=== PATIENT | female | born 1995 | race Two or more races ===

== ENCOUNTER 2021-02-04 13:14 | Emergency (ER) | payer MEDICAID, OTHER ==
[2021-02-04 13:58] VITALS: BP 136/77
[2021-02-04] MEDS ORDERED: diphenhdrAMINE HCL 50 MG/1 ML VL IM ONE (15:45)
[2021-02-04] MEDS ORDERED: methylPREDNISolone SOD SUCC 125 MG/2 ML VL IM ONE (15:45)
== END 2021-02-04 16:42 | disposition home or self-care (01) ==
LOC: ER 13:14
DX: T78.40XA Allergy, unspecified, initial encounter (principal); J06.9 Acute upper respiratory infection, unspecified; B97.89 Other viral agents as the cause of diseases classified elsewhere; Y92.89 Other specified places as the place of occurrence of the external cause
CPT/HCPCS: 71046; 96372; 99284; J1200; J2930

== ENCOUNTER 2021-05-06 11:22 | Emergency (ER) | payer MEDICAID ==
[~2021-05-06] VITALS: Ht 152.4 cm; Wt 117.9 kg
[2021-05-06 14:09] VITALS: BP 112/83
== END 2021-05-06 14:27 | disposition home or self-care (01) ==
LOC: ER 11:22
DX: N64.52 Nipple discharge (principal)

== ENCOUNTER 2021-05-11 14:45 | Emergency (ER) | payer MEDICAID ==
[~2021-05-11] VITALS: Ht 152.4 cm; Wt 117.9 kg
[2021-05-11 15:35] VITALS: BP 130/91
== END 2021-05-11 16:26 | disposition home or self-care (01) ==
LOC: ER 14:45
DX: N64.4 Mastodynia (principal); F12.10 Cannabis abuse, uncomplicated

== ENCOUNTER 2021-07-28 07:13 | Emergency (ER) | payer MEDICAID ==
[~2021-07-28] VITALS: Ht 154.9 cm; Wt 117.9 kg
[2021-07-28 08:04] LABS: Urine Bacteria FEW /hpf (None Seen); Urine Blood Negative /uL (Negative); Urine Specific Gravity 1.016 (1.001-1.035); Urine WBC 6 /hpf (0 - 5)
[2021-07-28] MEDS ORDERED: ACET-1158 PO (09:44)
[2021-07-28] MEDS ORDERED: AMOX-277 PO (09:44)
[2021-07-28] MEDS ORDERED: ACETAMINOPHEN 325 MG TAB PO ONE (09:45)
[2021-07-28 10:05] VITALS: BP 134/80
== END 2021-07-28 10:09 | disposition home or self-care (01) ==
LOC: ER 07:13
DX: J06.9 Acute upper respiratory infection, unspecified (principal); N39.0 Urinary tract infection, site not specified; G44.209 Tension-type headache, unspecified, not intractable; F12.10 Cannabis abuse, uncomplicated; F17.200 Nicotine dependence, unspecified, uncomplicated; Z20.822 Contact with and (suspected) exposure to COVID-19
CPT/HCPCS: 36415; 81001; 81025

== ENCOUNTER 2021-09-24 11:21 | Emergency (ER) | payer MEDICAID ==
[~2021-09-24] VITALS: Ht 154.9 cm; Wt 117.9 kg
[~2021-09-24 11:21] MED LIST: ACET-1158 PO; AMOX-277 PO
[2021-09-24 13:12] LABS: Basophils # (auto) 0.2 10 ^3/uL (0-0.2); Eosinophils # (auto) 0 10 ^3/uL (0-0.8); Monocytes # (auto) 0.4 10 ^3/uL (0-1.3)
[2021-09-24 13:13] LABS: Basophils % (auto) 2.3 % (0.0-2.0); Eosinophils % (auto) 0.3 % (0.0-7.0); Hematocrit 41.9 % (36.0-46.0); Mean Corpuscular Hemoglobin 26.7 pg (28.0-32.0); Mean Corpuscular Hgb Conc. 33.4 g/dL (32.0-36.0); Mean Corpuscular Volume 79.9 fL (80.0-100.0); Monocytes % (auto) 4.2 % (0.0-12.0); Neutrophils # (auto) 7.2 10 ^3/uL (1.6-8.6); Neutrophils % (auto) 73.2 % (37.0-80.0); Red Blood Cells 5.24 10^6/uL (4.0-5.20); Red Cell Distribution Width 16.4 % (11.8-14.3); White Blood Cell 9.8 10^3/uL (4.4-10.8)
[2021-09-24] MEDS ORDERED: SODIUM CHLORIDE 0.9% 1,000 ML IV ONE (13:30)
[2021-09-24 13:42] LABS: Potassium 3.4 mmol/L (3.5-5.1)
[2021-09-24 13:48] LABS: Albumin 3.6 g/dL (3.4-5.0); BUN/Creatinine Ratio 11.1; Bilirubin, Total 0.6 mg/dL (0.2-1.0); Calcium 9.2 mg/dL (8.5-10.1); Total Protein 8.5 g/dL (6.4-8.2)
[2021-09-24 15:57] LABS: Urine Bacteria FEW /hpf (None Seen); Urine Blood Negative /uL (Negative); Urine Specific Gravity 1.019 (1.001-1.035); Urine WBC 3 /hpf (0 - 5)
[2021-09-24] MEDS ORDERED: ONDA-144 PO (16:16)
[2021-09-24 16:54] VITALS: BP 128/70
== END 2021-09-24 17:04 | disposition home or self-care (01) ==
LOC: ER 11:21
DX: R11.2 Nausea with vomiting, unspecified (principal); R19.7 Diarrhea, unspecified; F17.210 Nicotine dependence, cigarettes, uncomplicated; Z79.2 Long term (current) use of antibiotics; Z79.899 Other long term (current) drug therapy
CPT/HCPCS: 36415; 74176; 80053; 81001; 83690; 84702; 85025; 96360; 99284; J7030

== ENCOUNTER 2022-01-20 09:35 | Emergency (ER) | payer MEDICAID ==
[~2022-01-20] VITALS: Ht 152.4 cm; Wt 120.1 kg
[~2022-01-20 09:35] MED LIST changes: +ONDA-144 PO
[2022-01-20 10:25] LABS: Basophils # (auto) 0 10 ^3/uL (0-0.2); Basophils % (auto) 0.4 % (0.0-2.0); Eosinophils # (auto) 0.2 10 ^3/uL (0-0.8); Mean Corpuscular Hemoglobin 26.3 pg (28.0-32.0); Monocytes # (auto) 0.5 10 ^3/uL (0-1.3)
[2022-01-20 10:27] LABS: Eosinophils % (auto) 1.9 % (0.0-7.0); Hematocrit 40.7 % (36.0-46.0); Hemoglobin 13.3 g/dL (12.2-16.2); Lymphocytes # (auto) 2.3 10 ^3/uL (0.4-5.4); Lymphocytes % (auto) 25.8 % (10.0-50.0); Mean Corpuscular Hgb Conc. 32.7 g/dL (32.0-36.0); Mean Corpuscular Volume 80.4 fL (80.0-100.0); Monocytes % (auto) 5.3 % (0.0-12.0); Neutrophils # (auto) 5.9 10 ^3/uL (1.6-8.6); Neutrophils % (auto) 66.6 % (37.0-80.0); Red Blood Cells 5.05 10^6/uL (4.0-5.20); Red Cell Distribution Width 15.6 % (11.8-14.3); White Blood Cell 8.9 10^3/uL (4.4-10.8)
[2022-01-20 10:43] LABS: Albumin 3.5 g/dL (3.4-5.0); BUN/Creatinine Ratio 12.9; Calcium 8.3 mg/dL (8.5-10.1); Potassium 4.1 mmol/L (3.5-5.1)
[2022-01-20 10:46] LABS: Bilirubin, Total 0.7 mg/dL (0.2-1.0); Total Protein 7.1 g/dL (6.4-8.2)
[2022-01-20 12:38] LABS: Urine Bacteria FEW /hpf (None Seen); Urine Blood Negative /uL (Negative); Urine Specific Gravity 1.004 (1.001-1.035); Urine WBC <1 /hpf (0 - 5)
[2022-01-20] MEDS ORDERED: ONDA-144 PO (14:07)
[2022-01-20 14:59] VITALS: BP 118/94
== END 2022-01-20 15:02 | disposition home or self-care (01) ==
LOC: ER 09:35
DX: B34.9 Viral infection, unspecified (principal); R11.0 Nausea; F17.210 Nicotine dependence, cigarettes, uncomplicated; Z79.2 Long term (current) use of antibiotics; Z79.899 Other long term (current) drug therapy
CPT/HCPCS: 36415; 80053; 81001; 81025; 85025; 93005

== ENCOUNTER 2022-07-12 10:07 | Emergency (ER) | payer MEDICAID ==
[~2022-07-12] VITALS: Ht 152.4 cm; Wt 120.4 kg
[2022-07-12 10:20] VITALS: BP 132/99
[2022-07-12] MEDS ORDERED: HYDR50CA PO (12:47)
== END 2022-07-12 12:47 | disposition home or self-care (01) ==
LOC: ER 10:07
DX: F41.8 Other specified anxiety disorders (principal); Z79.2 Long term (current) use of antibiotics; Z79.899 Other long term (current) drug therapy
CPT/HCPCS: 93005

== ENCOUNTER 2022-11-21 00:58 | Emergency (ER) | payer MEDICAID ==
[~2022-11-21] VITALS: Ht 152.4 cm; Wt 120.6 kg
[~2022-11-21 00:58] MED LIST changes: -ACET-1158 PO; +ACET500T58 PO; -AMOX-277 PO; +AMOX875T4 PO; +HYDR50CA PO
[2022-11-21] MEDS ORDERED: AMOX500T3 PO (04:09)
[2022-11-21 04:43] VITALS: BP 116/70; PULSE 89; RESP 16; TEMP 98; O2SAT 96
== END 2022-11-21 04:11 | disposition home or self-care (01) ==
LOC: ER 01:00
DX: J03.90 Acute tonsillitis, unspecified (principal); F17.210 Nicotine dependence, cigarettes, uncomplicated; F12.90 Cannabis use, unspecified, uncomplicated; Z79.899 Other long term (current) drug therapy

== ENCOUNTER 2022-11-26 07:45 | Emergency (ER) | payer MEDICAID ==
[~2022-11-26] VITALS: Ht 152.4 cm; Wt 116.7 kg
[~2022-11-26 07:45] MED LIST changes: +AMOX500T3 PO
[2022-11-26 07:58] VITALS: BP 123/51; PULSE 71; RESP 18; TEMP 97.8; O2SAT 97
[2022-11-26] MEDS ORDERED: IBUP-1454 PO (09:16)
[2022-11-26] MEDS ORDERED: METH-1181 PO (09:16)
== END 2022-11-26 09:46 | disposition home or self-care (01) ==
LOC: ER 07:45
DX: M54.2 Cervicalgia (principal); F17.210 Nicotine dependence, cigarettes, uncomplicated; F15.90 Other stimulant use, unspecified, uncomplicated; Z79.1 Long term (current) use of non-steroidal anti-inflammatories (NSAID); Z79.899 Other long term (current) drug therapy
CPT/HCPCS: 72040; 81002; 81025

== ENCOUNTER 2023-01-24 22:06 | Emergency (ER) | payer MEDICAID ==
[~2023-01-24 22:06] MED LIST changes: +IBUP-1454 PO; +METH-1181 PO
[2023-01-24 23:44] LABS: Basophils # (auto) 0 10 ^3/uL (0-0.2); Basophils % (auto) 0.2 % (0.0-2.0); Eosinophils # (auto) 0.2 10 ^3/uL (0-0.8); Eosinophils % (auto) 1.5 % (0.0-7.0); Hematocrit 41.6 % (36.0-46.0); Hemoglobin 13.6 g/dL (12.2-16.2); Lymphocytes # (auto) 2.7 10 ^3/uL (0.4-5.4); Lymphocytes % (auto) 19.5 % (10.0-50.0); Mean Corpuscular Hemoglobin 27.6 pg (28.0-32.0); Mean Corpuscular Hgb Conc. 32.6 g/dL (32.0-36.0); Mean Corpuscular Volume 84.6 fL (80.0-100.0); Monocytes # (auto) 1.1 10 ^3/uL (0-1.3); Monocytes % (auto) 7.6 % (0.0-12.0); Neutrophils # (auto) 9.9 10 ^3/uL (1.6-8.6); Neutrophils % (auto) 71.2 % (37.0-80.0); Red Blood Cells 4.91 10^6/uL (4.0-5.20); Red Cell Distribution Width 15.1 % (11.8-14.3); White Blood Cell 13.9 10^3/uL (4.4-10.8)
[2023-01-25 00:09] LABS: Alanine Aminotransferase 15 U/L (7-40); Albumin 4.4 g/dL (3.2-4.8); Alkaline Phosphatase 85 U/L (46-116); Anion Gap 6 (5-15); Aspartate Aminotransferase 12 U/L (13-40); BUN/Creatinine Ratio 11.4 (10.0-20.0); Bilirubin, Total 0.8 mg/dL (0.2-1.0); Blood Urea Nitrogen 10 mg/dL (9-23); Calcium 9.4 mg/dL (8.7-10.4); Carbon Dioxide 31 mmol/L (20-30); Chloride 103 mmol/L (98-107); Glucose 62 mg/dL (74-106); Potassium 3.6 mmol/L (3.5-5.1); Sodium 140 mmol/L (136-145); Total Protein 7.1 g/dL (5.7-8.2)
[2023-01-25] MEDS ORDERED: KETOROLAC TROMETH 60MG/2ML VIAL IM ONE (01:15)
[2023-01-25 02:38] LABS: Vaginal Trichomonas Not Present
[2023-01-25 02:39] LABS: Vaginal Bacteria Few; Vaginal Clue Cells Few; Vaginal Epithelial Cells Many
[2023-01-25 04:15] LABS: Urine Bacteria NONE SEEN /hpf (None Seen); Urine Blood Negative /uL (Negative); Urine Clarity CLOUDY (Clear); Urine Color Yellow (Yellow); Urine Mucus FEW (None Seen); Urine Protein, UAD 1+ (Negative); Urine Specific Gravity 1.034 (1.001-1.035); Urine WBC 55 /hpf (0 - 5); Urine WBC Clumps PRESENT /hpf (None Seen)
[2023-01-25] MEDS ORDERED: IBUP-1456 PO (05:59)
== END 2023-01-25 05:54 | disposition home or self-care (01) ==
LOC: ER 22:06
DX: N83.202 Unspecified ovarian cyst, left side (principal); R10.2 Pelvic and perineal pain; F17.210 Nicotine dependence, cigarettes, uncomplicated; F12.10 Cannabis abuse, uncomplicated; Z32.02 Encounter for pregnancy test, result negative
CPT/HCPCS: 36415; 74176; 80053; 81001; 81025; 84702; 85025; 87210; 96372; 99285; J1885

== ENCOUNTER 2023-01-28 09:18 | Emergency (ER) | payer MEDICAID ==
[~2023-01-28] VITALS: Ht 152.4 cm; Wt 116.7 kg
[~2023-01-28 09:18] MED LIST changes: +IBUP-1456 PO
[2023-01-28 12:54] VITALS: BP 150/102; PULSE 87; RESP 16; TEMP 98.7; O2SAT 97
[2023-01-28 14:39] LABS: Albumin 4.6 g/dL (3.2-4.8); Alkaline Phosphatase 82 U/L (46-116); Anion Gap 5 (5-15); Aspartate Aminotransferase < 8 U/L (13-40); BUN/Creatinine Ratio 8.6 (10.0-20.0); Blood Urea Nitrogen 6 mg/dL (9-23); Calcium 9.4 mg/dL (8.7-10.4); Carbon Dioxide 27 mmol/L (20-30); Chloride 105 mmol/L (98-107); Glucose 86 mg/dL (74-106); Lipase 37 U/L (12-53); Potassium 3.8 mmol/L (3.5-5.1); Sodium 137 mmol/L (136-145)
[2023-01-28 14:40] LABS: Bilirubin, Total 1.2 mg/dL (0.2-1.0); Total Protein 7.9 g/dL (5.7-8.2)
[2023-01-28 14:46] LABS: Basophils # (auto) 0 10 ^3/uL (0-0.2); Basophils % (auto) 0.3 % (0.0-2.0); Eosinophils # (auto) 0.1 10 ^3/uL (0-0.8); Eosinophils % (auto) 0.6 % (0.0-7.0); Hematocrit 41.5 % (36.0-46.0); Hemoglobin 13.8 g/dL (12.2-16.2); Lymphocytes # (auto) 1.9 10 ^3/uL (0.4-5.4); Lymphocytes % (auto) 15.1 % (10.0-50.0); Mean Corpuscular Hgb Conc. 33.2 g/dL (32.0-36.0); Mean Corpuscular Volume 84.3 fL (80.0-100.0); Monocytes # (auto) 0.7 10 ^3/uL (0-1.3); Monocytes % (auto) 5.4 % (0.0-12.0); Neutrophils % (auto) 78.6 % (37.0-80.0); Nucleated Red Blood Cells % 0.1 %; Red Blood Cells 4.93 10^6/uL (4.0-5.20); Red Cell Distribution Width 15.1 % (11.8-14.3); White Blood Cell 12.7 10^3/uL (4.4-10.8)
[2023-01-28 14:52] LABS: Alanine Aminotransferase < 9 U/L (7-40)
[2023-01-28] MEDS ORDERED: ACET1CAP14 PO (16:08)
== END 2023-01-28 16:24 | disposition home or self-care (01) ==
LOC: ER 09:18
DX: N83.202 Unspecified ovarian cyst, left side (principal); N83.201 Unspecified ovarian cyst, right side; F17.210 Nicotine dependence, cigarettes, uncomplicated; F12.10 Cannabis abuse, uncomplicated
CPT/HCPCS: 36415; 76856; 80053; 83690; 84702; 85025

== ENCOUNTER 2023-05-26 11:25 | Emergency (ER) | payer MEDICAID ==
[~2023-05-26] VITALS: Ht 152.4 cm; Wt 115.0 kg
[~2023-05-26 11:25] MED LIST changes: +ACET1CAP14 PO
[2023-05-26 12:27] VITALS: BP 156/90; PULSE 88; RESP 18; TEMP 97.2; O2SAT 98
[2023-05-26] MEDS ORDERED: CYCL-837 PO (13:59)
[2023-05-26] MEDS ORDERED: MELO7.5T7 PO (13:59)
== END 2023-05-26 13:59 | disposition home or self-care (01) ==
LOC: ER 11:25
DX: M54.12 Radiculopathy, cervical region (principal); F17.210 Nicotine dependence, cigarettes, uncomplicated; F12.10 Cannabis abuse, uncomplicated
CPT/HCPCS: 81025

== ENCOUNTER 2023-08-31 11:16 | Emergency (ER) | payer MEDICAID ==
[~2023-08-31] VITALS: Ht 152.4 cm; Wt 118.0 kg
[~2023-08-31 11:16] MED LIST changes: +CYCL-837 PO; +MELO7.5T7 PO
[2023-08-31 12:25] VITALS: BP 123/78; PULSE 74; RESP 18; O2SAT 98
[2023-08-31 12:59] LABS: Urine Bacteria MOD /hpf (None Seen); Urine Blood Negative /uL (Negative); Urine Clarity Clear (Clear); Urine Color Light-Yellow (Yellow); Urine Protein, UAD Negative (Negative); Urine Specific Gravity 1.018 (1.001-1.035); Urine Urobilinogen Normal (Negative); Urine WBC 5 /hpf (0 - 5); Urine pH 7.5 (5.0-9.0)
== END 2023-08-31 13:22 | disposition home or self-care (01) ==
LOC: ER 11:16
DX: S40.021A Contusion of right upper arm, initial encounter (principal); X58.XXXA Exposure to other specified factors, initial encounter; Y93.89 Activity, other specified; Y92.89 Other specified places as the place of occurrence of the external cause; Y99.8 Other external cause status
CPT/HCPCS: 81001

== ENCOUNTER 2023-09-28 03:02 | Emergency (ER) | payer MEDICAID ==
[~2023-09-28] VITALS: Ht 152.4 cm; Wt 118.0 kg
[2023-09-28 07:57] VITALS: BP 129/96; PULSE 72; RESP 18; TEMP 98.6; O2SAT 98
== END 2023-09-28 07:29 | disposition left against medical advice (07) ==
LOC: ER 03:02
DX: R21 Rash and other nonspecific skin eruption (principal); Z53.21 Procedure and treatment not carried out due to patient leaving prior to being seen by health care provider

== ENCOUNTER 2023-10-30 05:21 | Emergency (ER) | payer MEDICAID ==
[~2023-10-30] VITALS: Ht 152.4 cm; Wt 123.0 kg
[2023-10-30 05:25] VITALS: BP 123/81; PULSE 69; RESP 16; TEMP 98.7
[2023-10-30] MEDS ORDERED: AZIT500T66 PO (06:44)
[2023-10-30] MEDS ORDERED: LIDO2SOL26 MT (06:44)
[2023-10-30 06:46] VITALS: O2SAT 98
== END 2023-10-30 07:13 | disposition home or self-care (01) ==
LOC: ER 05:21
DX: J03.90 Acute tonsillitis, unspecified (principal); F17.210 Nicotine dependence, cigarettes, uncomplicated; F12.10 Cannabis abuse, uncomplicated; Z79.899 Other long term (current) drug therapy

== ENCOUNTER 2024-01-03 08:41 | Emergency (ER) | payer MEDICAID ==
[~2024-01-03] VITALS: Ht 152.4 cm; Wt 114.2 kg
[~2024-01-03 08:41] MED LIST changes: +AZIT500T66 PO; +LIDO2SOL26 MT
[2024-01-03 09:20] VITALS: BP 125/77; PULSE 110; RESP 16; TEMP 98.7; O2SAT 99
[2024-01-03] MEDS: IBUPROFEN 800 MG TAB PO ONE (09:38)
[2024-01-03] MEDS ORDERED: IBUP-1455 PO (10:05)
== END 2024-01-03 10:49 | disposition home or self-care (01) ==
LOC: ER 08:41
DX: S93.402A Sprain of unspecified ligament of left ankle, initial encounter (principal); F17.210 Nicotine dependence, cigarettes, uncomplicated; F12.10 Cannabis abuse, uncomplicated; W01.0XXA Fall on same level from slipping, tripping and stumbling without subsequent striking against object, initial encounter; Y93.89 Activity, other specified; Y92.89 Other specified places as the place of occurrence of the external cause; Y99.8 Other external cause status
CPT/HCPCS: 29515; 73610

== ENCOUNTER 2024-03-18 11:20 | Emergency (ER) | payer MEDICAID ==
[~2024-03-18] VITALS: Ht 154.9 cm; Wt 115.6 kg
[~2024-03-18 11:20] MED LIST changes: +IBUP-1455 PO
[2024-03-18 11:21] VITALS: BP 119/87; PULSE 99; RESP 20; TEMP 97.7; O2SAT 97
[2024-03-18 11:54] LABS: Urine Bacteria None Seen /hpf (None Seen)
[2024-03-18 12:23] LABS: Urine Blood Negative /uL (Negative); Urine Clarity Turbid (Clear); Urine Color Light-Yellow (Yellow); Urine Mucus FEW (None Seen); Urine Protein, UAD TRACE (Negative); Urine Specific Gravity 1.021 (1.001-1.035); Urine Urobilinogen Normal (Negative); Urine WBC 4 /hpf (0 - 5)
[2024-03-18] MEDS ORDERED: ALBE200T9 PO (13:23)
--- NOTE | 2024-03-18 13:32 | ED.PDOC ---
History of Present Illness HPI Comments A 29 YEAR OLD FEMALE PRESENTS TO THE ED WITH COMPLAINT OF POSSIBLE TAPEWORM IN STOOL. PATIENT STATES SHE HAS BEEN EXPERIENCING MILD DIARRHEA FOR THE PAST 3 DAYS AND NOTES SHE NOTICED SOMETHING THAT LOOKED LIKE A WORM IN HER STOOL TODAY, PROMPTING HER TO COME TO THE ED FOR EVALUATION. PATIENT DENIES FEVER, CHILLS, SHORTNESS OF BREATH, CHEST PAIN, ABDOMINAL PAIN, NAUSEA, VOMITING, HEADACHE, OR OTHER COMPLAINTS. NO OTHER SYMPTOMS OR MODIFYING FACTORS AT THIS TIME. PATIENT IS ALERT, ORIENTED X 4, AND HAS STEADY GAIT. Chief Complaint: Abdominal Pain Time Seen by MD: 12:01 Primary Care Provider: ZACK Reviewed Notes: Nurses Notes, Medications, Allergies Allergies: Coded Allergies: NO KNOWN ALLERGIES (Unverified , 02/04/21) Home Meds Active Scripts Albendazole (Albendazole) 200 Mg Tab, 200 MG PO BID, #6 TAB Prov:EVELINA BUCHANAN 03/18/24 Ibuprofen Micronized (Ibuprofen) 800 Mg Tab, 800 MG PO Q8HPRN PRN, #20 TAB Prov:KERVIN GUERRA PAC 01/03/24 Lidocaine HCl (Mouth-Throat) (Lidocaine HCl Viscous) 2 % Ludy, 10 ML MT TID, #100 ML Prov:EVELINA BUCHANAN 10/30/23 Azithromycin (Azithromycin) 500 Mg Tab, 1 TAB PO DAILY, #5 TAB Prov:EVELINA BUCHANAN 10/30/23 Cyclobenzaprine Hcl (Cyclobenzaprine Hcl) 5 Mg Tab, 1 TAB PO QPM for 30 Days, #30 TAB 0 Refills Prov:MANDO MARIN ENGINEER INTERNSHIP 05/26/23 Meloxicam (Meloxicam) 7.5 Mg Tab, 1 TAB PO DAILY for 14 Days, #14 TAB 0 Refills Prov:MANDO MARIN ENG[employer] 05/26/23 Acetaminophen (Tylenol) 325 Mg Cap, 325 MG PO Q4HPRN PRN, #30 CAP 0 Refills Take 1-2 caps po q4h prn for pain (Do not exceed 3,000mg of acetaminophen in 24 hours) Prov:INNA KAPOOR EBAY RESELLER 01/28/23 Ibuprofen (Ibuprofen) 800 Mg Tab, 1 TAB PO TID PRN for 30 Days, #90 TAB 1 Refill Prov:JESSICA ELAINE EBAY RESELLER 01/25/23 Ibuprofen (Ibuprofen) 600 Mg Tab, 1 TAB PO TID for 10 Days, #30 TAB 0 Refills Prov:TANIAREBECCA ZAPATAJeannette Hays ENGINEER INTERNSHIP 11/26/22 Methocarbamol (Methocarbamol) 500 Mg Tab, 500 MG PO TIDP PRN for 14 Days, #42 TAB 0 Refills Prov:MANDO MARIN Saúl [employer] 11/26/22 Amoxicillin Trihydrate (Amoxicillin) 500 Mg Tab, 1 TAB PO BID for 10 Days, #20 TAB 0 Refills Prov:JASIEL LITTLE 11/21/22 Hydroxyzine Pamoate (Vistaril) 50 Mg Cap, 1 CAP PO QHSP PRN, #24 CAP 0 Refills Prov:EVELINA BUCHANAN 07/12/22 Ondansetron (Zofran) 4 Mg Tab, 1 TAB PO Q8HR PRN, #15 TAB 0 Refills Prov:JASIEL LITTLE 03/19/22 Ondansetron (Zofran) 4 Mg Tab, 1 TAB PO Q6HR, #20 TAB Prov:OSMIN LU MD 01/20/22 Ondansetron (Zofran) 4 Mg Tab, 4 MG PO Q8HP PRN for 12 Days, #30 TAB Prov:GURWINDER PRUITT MD 09/24/21 Acetaminophen (Acetaminophen) 500 Mg Tab, 500 MG PO QIDP, #30 TAB 0 Refills Prov:DENNIS SHAHID 07/28/21 Amoxicillin & Pot Clavulanate (Amoxicillin/Potassium Cla) 875 Mg Tab, 1 TAB PO BID for 7 Days, #14 TAB 0 Refills Prov:DENNIS SHAHID 07/28/21 Information Source: Patient Mode of Arrival: Ambulatory Severity: Mild Timing: Hours Duration: Hours Prehospital treatment: None Medication Refill: For: Other (POSSIBLE TAPEWORM IN STOOL) Past Medical History PAST MEDICAL HISTORY: Denies Surgical History: Denies all surgeries COMBER FIXER History: No Pertinent COMBER FIXER History Family History Family History: Reviewed,noncontributory to illness, Family hx of heart koby Family History (Other): Migraines Social History Smoker: Cigarettes Alcohol: Denies ETOH Use Drugs: Marijuana Lives In: Home Constitutional: denies: chills, diaphoresis, fatigue, fever, malaise, sweats, weakness, others EENTM: denies: blurred vision, double vision, ear bleeding, ear discharge, ear drainage, ear pain, ear ringing, eye pain, eye redness, hearing loss, mouth pain, mouth swelling, nasal discharge, nose bleeding, nose congestion, nose pain, photophobia, tearing, throat pain, throat swelling, voice changes, others Respiratory: denies: cough, hemoptysis, orthopnea, SOB at rest, shortness of breath, SOB with excertion, stridor, wheezing, others Cardiovascular: denies: chest pain, dizzy spells, diaphoresis, Dyspnea on exertion, edema, irregular heart beat, left arm pain, lightheadedness, palp itations, PND, syncope, others Gastrointestinal: reports: diarrhea, others (POSSIBLE TAPEWORM IN STOOL); denies: abdomen distended, abdominal pain, blood streaked bowels, constipated, dysphagia, difficulty swallowing, hematemesis, melena, nausea, poor appetite, poor fluid intake, rectal bleeding, rectal pain, vomiting Genitourinary: denies: abnormal vagina bleeding, burning, dyspareunia, dysuria, flank pain, frequency, hematuria, incontinence, pain, , vagina discharge, urgency, others Neurological: denies: dizziness, fainting, headache, left sided numbness, left sided weakness, numbness, paresthesia, pre-existing deficit, right sided numbness, right sided weakness, seizure, speech problems, tingling, tremors, weakness, others Musculoskeletal: denies: back pain, gout, joint pain, joint swelling, muscle pain, muscle stiffness, neck pain, others Integumetry: denies: bruises, change in color, change in hair/nails, dryness, laceration, lesions, lumps, rash, wounds, others Allergic/Immunocompromised: denies: Difficulty Healing, Frequent Infections, Hives, Itching, others Hematologic/Lymphatic: denies: anemia, blood clots, easy bleeding, easy bruising, swollen glands, others Endocrine: denies: excessive hunger, excessive sweating, excessive thirst, excessive urination, flushing, intolerance to cold, intolerance to heat, unexplained weight gain, unexplained weight loss, others Psychiatric: denies: anxiety, bipolar disorder, depression, hopeless, panic disorder, schizophrenia, sleepless, suicidal, others All Other Systems: Reviewed and Negative Physical Exam General Appearance: No Apparent Distress, Normal HEENT: Normal ENT Inspection, PERRL/EOMI, Pharynx Normal, TMs Normal Neck: Full Range of Motion, Non-Tender, Normal, Normal Inspection Respiratory: Chest Non-Tender, Lungs Clear, No Accessory Muscle Use, No Respiratory Distress, Normal Breath Sounds Cardiovascular: No Edema, No JVD, No Murmur, No Gallop, Normal Peripheral Pulses, Regular Rate/Rhythm Breast Exam: Deferred Gastrointestinal: No Organomegaly, Non Tender, No Pulsatile Mass, Normal Bowel Sounds, Soft Genitalia: Deferred Pelvic: Deferred Rectal: Normal rectal tone (NO DEFINITE TAPEWORM OR PINWORM SEEN. NO RECTAL BLEEDING AND BLOOD CLOTS. ) Extremities: No calf tenderness, Normal capillary refill, Normal inspection, Normal range of motion, Non-tender, No pedal edema Musculoskeletal : Apperance: Normal Neurologic: Alert, career development facilitator II-XII nml as Tested, No Motor Deficits, Normal Affect, Normal Mood, No Sensory Deficits Cerebellar Function: Normal Reflexes: Normal Skin: Dry, Normal Color, Warm Peripheral Pulses: 2+ carotid (R), 2+ carotid (L) Lymphatic: No Adenopathy Was a procedure done? Was a procedure done?: No Differential Dx Considerations may include: TAPEWORM, PARASITE, DIARRHEA, VIRAL SYNDROME, UTI, ACUTE CYSTITIS X-Ray, Labs, Meds, VS Vital Signs Date Time Temp Pulse Resp B/P (MAP) Pulse Ox O2 Delivery O2 Flow Rate FiO2 03/18/24 11:21 97.7 99 20 119/87 (98) 97 97.7 03/18/24 11:21 97.7 99 20 119/87 (98) 97 Lab Test 03/18/24 11:48 Range/Units Urine Color Light-yellow Yellow Urine Clarity Turbid H Clear Urine pH 7.0 5.0-9.0 Urine Specific [place] 1.021 1.001-1.035 Urine Protein Trace H Negative Urine Ketones Negative Negative Urine Blood Negative Negative /uL Urine Nitrite Negative Negative Urine Bilirubin Negative Negative Urine Urobilinogen Normal Negative mg/dL Urine Leukocyte Esterase 1+ Negative /uL Urine RBC 3 0 - 4 /hpf Urine WBC 4 0 - 5 /hpf Urine Squamous Epithelial Cells Few <5 /hpf Urine Bacteria None seen None Seen /hpf Urine Mucus Few None Seen Urine Glucose Normal Normal mg/dL Urine Test Negative Negative X-Ray, Labs, Meds, VS Comment EXTERNAL NOTES: NONE LABS ORDERED: UA, URINE REVIEWED AND INTERPRETED RESULTS: LEUKO 1+ IMAGING ORDERED: NONE INDEPENDENT HISTORIANS: NONE TREATMENTS ORDERED: PATIENT'S CASE AND RESULTS HAVE BEEN DISCUSSED WITH THE ED ATTENDING PHYSICIAN AND THEY AGREE WITH MY PLAN OF CARE. I HAVE DISCUSSED LAB RESULTS WITH PATIENT AND HAVE INSTRUCTED THEM TO FOLLOW UP WITH THEIR PCP IN 1-2 DAYS. THE PATIENT FULLY UNDERSTANDS THEIR RESULTS AND ARE AWARE THEY NEED TO FOLLOW UP WITH THEIR PCP FOR FURTHER EVALUATION IF THEIR SYMPTOMS PERSIST. Time of 1ST Reevaluation: 13:40 Reevaluation 1ST: Improved Patient Education/Counseling: Diagnosis, Treatment, Need For Follow Up Family Education/Counseling: Diagnosis, Treatment, Need For Follow Up Medical Screening: No EMC Exist At This Time Departure 1 Departure Time of Disposition: 13:50 Impression: Primary Impression: Tapeworm Disposition: 01 HOME / SELF CARE / HOMELESS Condition: Stable Additional Instructions: FOLLOW-UP WITH PCP IN 1 TO 2 DAYS. TAKE MEDICATIONS PRESCRIBED. RETURN TO ED FOR ANY NEW OR WORSENING SYMPTOMS. e-Prescriptions Albendazole (Albendazole) 200 Mg Tab 200 MG PO BID, #6 TAB Prov: EVELINA BUCHANAN 03/18/24 Discharged With: Self Critical Care Note Critical Care Time?: No Stability Stability form required: No I personally scribed for EVELINA BUCHANAN ([email or web address]) on 03/18/24 at 13:32. Electronically submitted by Lc Christianson ([email or web address]). EVELINA BUCHANAN Mar 18, 2024 13:32
== END 2024-03-18 13:42 | disposition home or self-care (01) ==
LOC: ER 11:20
DX: B71.9 Cestode infection, unspecified (principal); F17.210 Nicotine dependence, cigarettes, uncomplicated; F12.90 Cannabis use, unspecified, uncomplicated; Z79.899 Other long term (current) drug therapy
CPT/HCPCS: 81001; 81025

== ENCOUNTER 2024-08-16 11:30 | Emergency (ER) | payer MEDICAID ==
[~2024-08-16] VITALS: Ht 152.4 cm; Wt 119.4 kg
[~2024-08-16 11:30] MED LIST changes: +ALBE200T9 PO; +ALBU108A5 IN; +PRED20TA2 PO; +PROM1SOL4 PO
[2024-08-16] MEDS: SODIUM CHLORIDE 0.9% 1,000 ML IV ONE (13:12)
[2024-08-16] MEDS: ONDANSETRON HCL 4 MG/2 ML VIAL IV ONE (13:13)
[2024-08-16] MEDS: PANTOPRAZOLE 40 MG/10 ML VIAL INJ IV ONE (13:13)
[2024-08-16 13:17] LABS: Urine Bacteria None Seen /hpf (None Seen)
[2024-08-16 13:24] LABS: Urine Blood Negative /uL (Negative); Urine Clarity Clear (Clear); Urine Color Light-Yellow (Yellow); Urine Protein, UAD Negative (Negative); Urine Specific Gravity 1.012 (1.001-1.035); Urine Squamous Epithelial Cell FEW /hpf (<5); Urine Urobilinogen Normal (Negative); Urine WBC 1 /HPF (0-5)
[2024-08-16 13:30] LABS: Basophils # (auto) 0 10 ^3/uL (0-0.2); Basophils % (auto) 0.3 % (0.0-2.0); Eosinophils # (auto) 0.1 10 ^3/uL (0-0.8); Eosinophils % (auto) 1.4 % (0.0-7.0); Hematocrit 41.7 % (36.0-46.0); Lymphocytes # (auto) 2.2 10 ^3/uL (0.4-5.4); Mean Corpuscular Hemoglobin 27.8 pg (28.0-32.0); Mean Corpuscular Hgb Conc. 33.6 g/dL (32.0-36.0); Mean Corpuscular Volume 82.8 fL (80.0-100.0); Monocytes # (auto) 0.5 10 ^3/uL (0-1.3); Neutrophils # (auto) 7.5 10 ^3/uL (1.6-8.6); Neutrophils % (auto) 72.3 % (37.0-80.0); Platelet Count (auto) 323 10^3/uL (140-450); Red Blood Cells 5.04 10^6/uL (4.0-5.20); Red Cell Distribution Width 14.6 % (11.8-14.3); White Blood Cell 10.3 10^3/uL (4.4-10.8)
[2024-08-16 13:42] LABS: Alanine Aminotransferase 13 U/L (7-40); Albumin 4.7 g/dL (3.2-4.8); Alkaline Phosphatase 83 U/L (46-116); Anion Gap 6 (5-15); Calcium 9.1 mg/dL (8.7-10.4); Carbon Dioxide 28 mmol/L (20-31); Chloride 106 mmol/L (98-107); Glucose 91 mg/dL (74-106); Lipase 32 U/L (12-53); Potassium 3.8 mmol/L (3.5-5.1); Sodium 140 mmol/L (136-145)
[2024-08-16 13:43] LABS: BUN/Creatinine Ratio 11.8 (10.0-20.0); Blood Urea Nitrogen 9 mg/dL (9-23); Total Protein 7.9 g/dL (5.7-8.2)
[2024-08-16 13:45] LABS: Aspartate Aminotransferase 9 U/L (13-40)
--- NOTE | 2024-08-16 13:58 | ED.PDOC ---
History of Present Illness HPI Comments 29 y/o morbidly obese F with a history of asthma, ovarian cysts and marijuana use, c/o abdominal discomfort with associated chest heaviness, nausea, vomiting, diarrhea, weakness, fatigue, occasional dysuria, and anxiety for 2 days. Patient states she took a home preg test which was negative. Sexually active but not on control. Reports LMP on 05/16/24. Denies any blood in her urine or vomitus, fever, chills, congestion, shortness of breath, sick contacts or other associated symptoms. Chief Complaint: Pelvic Pain Time Seen by MD: 12:50 Primary Care Provider: ZACK Reviewed Notes: Nurses Notes, Medications, Allergies Allergies: Coded Allergies: NO KNOWN ALLERGIES (Unverified , 02/04/21) Home Meds Active Scripts Omeprazole Magnesium (Omeprazole) 20 Mg Tab, 20 MG PO DAILY, #30 TAB Prov:GHADA SPEAR MD 08/16/24 Dicyclomine Hcl (BENTYL CAPSULE) 10 Mg Cp, 2 CAP PO Q6HP PRN, #30 CAP 11 Refills Prn abdominal pain Prov:GHADA SPEAR MD 08/16/24 Ondansetron Odt 4MG Tab (ZOFRAN PO) 4 Mg Tb, 4 MG PO TID PRN, #30 TAB Prn nausea/vomiting ODT TAB-DISSOLVE IN MOUTH, THEN SWALLOW Prov:GHADA SPEAR MD 08/16/24 Promethazine-Dm (Promethazine Dm 6.25-15 mg/5Ml) 1 Ludy Ludy, 5 ML PO TID PRN, #240 ML Prov:BON PACHECO 03/28/24 Albuterol Sulfate (Albuterol Sulfate Hfa) 108 Mcg/Act Aer, 108 MCG IN TID PRN, #1 AER Prov:BON PACHECO 03/28/24 Prednisone (Prednisone) 20 Mg Tab, 20 MG PO DAILY for 5 Days, #5 MG Prov:BON PACHECO 03/28/24 Albendazole (Albendazole) 200 Mg Tab, 200 MG PO BID, #6 TAB Prov:EVELINA BUCHANAN 03/18/24 Ibuprofen Micronized (Ibuprofen) 800 Mg Tab, 800 MG PO Q8HPRN PRN, #20 TAB Prov:GUERRAKERVIN LIANA PAC 01/03/24 Lidocaine HCl (Mouth-Throat) (Lidocaine HCl Viscous) 2 % Ludy, 10 ML MT TID, #100 ML Prov:EVELINA BUCHANAN PA 10/30/23 Azithromycin (Azithromycin) 500 Mg Tab, 1 TAB PO DAILY, #5 TAB Prov:EVELINA BUCHANAN 10/30/23 Cyclobenzaprine Hcl (Cyclobenzaprine Hcl) 5 Mg Tab, 1 TAB PO QPM for 30 Days, #30 TAB 0 Refills Prov:MANDO MARIN WAITER/WAITRESS ROOM SERVICE 05/26/23 Meloxicam (Meloxicam) 7.5 Mg Tab, 1 TAB PO DAILY for 14 Days, #14 TAB 0 Refills Prov:MANDO MARIN WAITER/WAITRESS ROOM SERVICE 05/26/23 Acetaminophen (Tylenol) 325 Mg Cap, 325 MG PO Q4HPRN PRN, #30 CAP 0 Refills Take 1-2 caps po q4h prn for pain (Do not exceed 3,000mg of acetaminophen in 24 hours) Prov:INNA KAPOOR RN MATERNAL CHILD 01/28/23 Ibuprofen (Ibuprofen) 800 Mg Tab, 1 TAB PO TID PRN for 30 Days, #90 TAB 1 Refill Prov:JESSICA ELAINE RN MATERNAL CHILD 01/25/23 Ibuprofen (Ibuprofen) 600 Mg Tab, 1 TAB PO TID for 10 Days, #30 TAB 0 Refills Prov:MANDO MARIN WAITER/WAITRESS ROOM SERVICE 11/26/22 Methocarbamol (Methocarbamol) 500 Mg Tab, 500 MG PO TIDP PRN for 14 Days, #42 TAB 0 Refills Prov:MANDO MARIN WAITER/WAITRESS ROOM SERVICE 11/26/22 Amoxicillin Trihydrate (Amoxicillin) 500 Mg Tab, 1 TAB PO BID for 10 Days, #20 TAB 0 Refills Prov:JASIEL LITTLE 11/21/22 Hydroxyzine Pamoate (Vistaril) 50 Mg Cap, 1 CAP PO QHSP PRN, #24 CAP 0 Refills Prov:EVELINA BUCHANAN 07/12/22 Ondansetron (Zofran) 4 Mg Tab, 1 TAB PO Q8HR PRN, #15 TAB 0 Refills Prov:JASIEL LITTLE 03/19/22 Ondansetron (Zofran) 4 Mg Tab, 1 TAB PO Q6HR, #20 TAB Prov:OSMIN LU MD 01/20/22 Ondansetron (Zofran) 4 Mg Tab, 4 MG PO Q8HP PRN for 12 Days, #30 TAB Prov:GURWINDER PRUITT MD 09/24/21 Acetaminophen (Acetaminophen) 500 Mg Tab, 500 MG PO QIDP, #30 TAB 0 Refills Prov:DENNIS SHAHID 07/28/21 Amoxicillin & Pot Clavulanate (Amoxicillin/Potassium Cla) 875 Mg Tab, 1 TAB PO BID for 7 Days, #14 TAB 0 Refills Prov:DENNIS SHAHID 07/28/21 Information Source: Patient Mode of Arrival: Ambulatory Severity: Moderate Timing: Days Duration: Since onset Past Medical History PAST MEDICAL HISTORY: Asthma Surgical History: Denies all surgeries 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 Family History Family History: Reviewed,noncontributory to illness, Family hx of heart koby Family History (Other): Migraines Social History Smoker: Cigarettes Alcohol: Denies ETOH Use Drugs: Marijuana Lives In: Home All Other Systems: Reviewed and Negative (Comprehensive systems review obtained and negative except for what is stated in the HPI.) Physical Exam General Appearance: Mild Distress, Obese HEENT: Other (pupils and face symmetric, moist mucous membranes) Neck: Full Range of Motion, Normal Inspection Respiratory: Lungs Clear, No Accessory Muscle Use, No Respiratory Distress, Normal Breath Sounds Cardiovascular: No Edema, No JVD, Regular Rate/Rhythm Breast Exam: Deferred Gastrointestinal: LLQ, RLQ, Soft, Suprapubic, Tenderness Genitalia: Deferred Pelvic: Deferred Rectal: Deferred Extremities: Normal inspection, Normal range of motion, Non-tender, No pedal edema Neurologic: Alert (oriented x 4), Normal Affect, Other (ambulatory. anxious.) Cerebellar Function: NOT DONE Reflexes: NOT DONE Skin: Dry, Normal Color, Warm Lymphatic: NOT DONE Was a procedure done? Was a procedure done?: No Differential Dx Considerations may include: viral syndrome, UTI, , food poisoning, gastritis, gastroenteritis, cannabinoid hyperemesis syndrome, hypovolemia/dehydration, electrolyte imbalance, among others X-Ray, Labs, Meds, VS Vital Signs Date Time Temp Pulse Resp B/P (MAP) Pulse Ox O2 Delivery O2 Flow Rate FiO2 08/16/24 13:14 97.9 80 12 127/67 (87) 98 97.9 08/16/24 13:13 Room Air* 0 N/A Nasal Cannula* 08/16/24 11:45 98.5 85 18 133/79 (97) 95 98.5 Lab Test 08/16/24 12:59 08/16/24 12:57 08/16/24 12:50 Range/Units White Blood Count 10.3 4.4-10.8 10^3/uL Red Blood Count 5.04 4.0-5.20 10^6/uL Hemoglobin 14.0 12.2-16.2 g/dL Hematocrit 41.7 36.0-46.0 % Mean Corpuscular Volume 82.8 80.0-100.0 fL Mean Corpuscular Hemoglobin 27.8 L 28.0-32.0 pg Mean Corpuscular Hemoglobin Concent 33.6 32.0-36.0 g/dL Red Cell Distribution Width 14.6 H 11.8-14.3 % Platelet Count 323 140-450 10^3/uL Mean Platelet Volume 7.3 6.9-10.8 fL Neutrophils (%) (Auto) 72.3 37.0-80.0 % Lymphocytes (%) (Auto) 21.0 10.0-50.0 % Monocytes (%) (Auto) 5.0 0.0-12.0 % Eosinophils (%) (Auto) 1.4 0.0-7.0 % Basophils (%) (Auto) 0.3 0.0-2.0 % Neutrophils # (Auto) 7.5 1.6-8.6 10 ^3/uL Lymphocytes # (Auto) 2.2 0.4-5.4 10 ^3/uL Monocytes # (Auto) 0.5 0-1.3 10 ^3/uL Eosinophils # (Auto) 0.1 0-0.8 10 ^3/uL Basophils # (Auto) 0 0-0.2 10 ^3/uL Nucleated Red Blood Cells 0.0 % Sodium Level 140 136-145 mmol/L Potassium Level 3.8 3.5-5.1 mmol/L Chloride Level 106 98-107 mmol/L Carbon Dioxide Level 28 20-31 mmol/L Anion Gap 6 5-15 Blood Urea Nitrogen 9 9-23 mg/dL Creatinine 0.76 0.550-1.02 mg/dL Glomerular Filtration Rate Calc 110 >90 mL/min BUN/Creatinine Ratio 11.8 10.0-20.0 Serum Glucose 91 74-106 mg/dL Calcium Level 9.1 8.7-10.4 mg/dL Total Bilirubin 1.0 0.2-1.0 mg/dL Aspartate Amino Transferase (AST) 9 L 13-40 U/L Alanine Aminotransferase (ALT) 13 7-40 U/L Alkaline Phosphatase 83 46-116 U/L Total Protein 7.9 5.7-8.2 g/dL Albumin 4.7 3.2-4.8 g/dL Lipase 32 12-53 U/L Beta HCG, Quantitative 1.2 L 1.5-4.2 mIU/mL Urine Color Light-yellow Yellow Urine Clarity Clear Clear Urine pH 7.0 5.0-9.0 Urine Specific [place] 1.012 1.001-1.035 Urine Protein Negative Negative Urine Ketones Negative Negative Urine Blood Negative Negative /uL Urine Nitrite Negative Negative Urine Bilirubin Negative Negative Urine Urobilinogen Normal Negative mg/dL Urine Leukocyte Esterase Negative Negative /uL Urine RBC 1 0 - 4 /hpf Urine Microscopic WBC 1 0-5 /HPF Urine Squamous Epithelial Cells Few <5 /hpf Urine Bacteria None seen None Seen /hpf Urine Glucose Normal Normal mg/dL Current Medications Medications (Trade) Dose Ordered Sig/Chaya Route Start Time Stop Time Status Last Admin Sodium Chloride 1,000 ml @ 1,000 mls/hr Q1H ONCE IV 08/16/24 13:00 08/16/24 13:59 DC 08/16/24 13:12 Ondansetron HCl (Zofran) 4 mg ONCE ONCE IV 08/16/24 13:00 08/16/24 13:01 DC 08/16/24 13:13 Pantoprazole Sodium (Protonix) 40 mg ONCE ONCE IV 08/16/24 13:00 08/16/24 13:01 DC 08/16/24 13:13 PROCEDURE(s): ABPL - CT AB PEL WO CON-NO ORAL OR IV REASON: abd pain, n/v/d ORDER NUMBER(s): [id number], ACCESSION NUMBER(s): [id number] CT ABDOMEN AND PELVIS WITHOUT CONTRAST CLINICAL HISTORY: abd pain, n/v/d TECHNIQUE: Multiple contiguous axial images of the abdomen and pelvis without intravenous contrast. The images were reformatted degenerate coronal and sagittal reconstructions. All CT scans at this medical facility are performed using dose modulation techniques as appropriate to a performed exam including the following:Automated exposure control was utilized; adjustment of the MA and/or KV according to patient size; and use of iterative reconstruction technique. Radiation Dose Information: CT Dose: CTDI volume is 27.4 mGy. Dose-length produ ct is 1588.94 mGy*cm Comparison: CT CT AB PEL WO CON-NO ORAL OR IV on DOS: 01/25/23, CT ABD PELVIS WO CONTRAST on DOS: 09/24/21 FINDINGS: Evaluation of the abdomen and pelvis is limited without intravenous contrast. The liver, gallbladder, pancreas, kidneys, adrenal glands, and spleen appear within normal limits. There is no gross evidence of abdominal lymphadenopathy. There is no free fluid or free air. The stomach grossly appears unremarkable. The small and large bowel loops demonstrate normal caliber and distribution. A normal appearing appendix is seen in the right lower quadrant abdomen. The abdominal aorta and IVC appear within normal limits. The bladder appears unremarkable for the degree of distention. The uterus appears within normal limits.. There is no gross evidence of a pelvic mass. There is no free fluid collection. Lung bases are clear. There is no acute osseous abnormality. IMPRESSION: 1. There is no acute process in the abdomen and pelvis. HS:Y X-Ray, Labs, Meds, VS Comment 29-year-old female with a history of asthma complaining of nausea, vomiting, abdominal pain and diarrhea Vitals normal Exam remarkable for lower abdominal tenderness to palpation. No tenderness to percussion. No rebound or guarding. Rhythm strip independently interpreted by me: Sinus rhythm, rate 5, no ectopy. CT abdomen and pelvis IMPRESSION: 1. There is no acute process in the abdomen and pelvis. CBC, CMP, lipase, hCG and UA unremarkable for any abnormality of acute significance Patient treated with the following in the ED: 1 L 0.9 normal saline IV bolus, Zofran 4 mg IV, Protonix 40 mg IV On re-evaluation, symptoms have improved. Vitals were stable. Repeat abdominal exam was benign and patient tolerated p.o. fluids. Patient appears stable for discharge with close outpatient follow-up with primary physician. Rx Zofran, Bentyl, omeprazole Time of 1ST Reevaluation: 13:20 Reevaluation 1ST: Unchanged Time of 2ND Reevaluation: 15:23 Reevaluation 2ND: Improved Patient Education/Counseling: Diagnosis, Treatment Family Education/Counseling: No Family Present Departure 1 Departure Time of Disposition: 15:23 Impression: Primary Impression: Abdominal pain Qualified Codes: R10.30 - Lower abdominal pain, unspecified Additional Impression: Vomiting and diarrhea Disposition: HOME / SELF CARE / HOMELESS Condition: Stable Additional Instructions: Your blood tests were normal. test was negative, meaning you are not . Your urine test was normal and did not show a urinary tract infection. Your CT scan was unremarkable. Your symptoms are possibly due to viral illness, which should resolve on its own. I have prescribed medication for your symptoms. Follow-up with your primary doctor in 1-2 days. Return to ER for persistent or worsening symptoms. PATIENT: ASHWIN ROSALES ACCT: [id number] UNIT: [id number] : 1995 LOC: ER ROOM / BED: / AGE / SEX: 29 / F ADM STATUS: REG ER SERVICE 1250 ORDERING PHYSICIAN: GHADA SPEAR MD PROCEDURE(s): ABPL - CT AB PEL WO CON-NO ORAL OR IV REASON: abd pain, n/v/d ORDER NUMBER(s): [id number], ACCESSION NUMBER(s): [id number] CT ABDOMEN AND PELVIS WITHOUT CONTRAST CLINICAL HISTORY: abd pain, n/v/d TECHNIQUE: Multiple contiguous axial images of the abdomen and pelvis without intravenous contrast. The images were reformatted degenerate coronal and sagittal reconstructions. All CT scans at this medical facility are performed using dose modulation techniques as appropriate to a performed exam including the following:Automated exposure control was utilized; adjustment of the MA and/or KV according to patient size; and use of iterative reconstruction technique. Radiation Dose Information: CT Dose: CTDI volume is 27.4 mGy. Dose-length product is 1588.94 mGy*cm Comparison: CT CT AB PEL WO CON-NO ORAL OR IV on DOS: 01/25/23, CT ABD PELVIS WO CONTRAST on DOS: 09/24/21 FINDINGS: Evaluation of the abdomen and pelvis is limited without intravenous contrast. The liver, gallbladder, pancreas, kidneys, adrenal glands, and spleen appear within normal limits. There is no gross evidence of abdominal lymphadenopathy. There is no free fluid or free air. The stomach grossly appears unremarkable. The small and large bowel loops demonstrate normal caliber and distribution. A normal appearing appendix is seen in the right lower quadrant abdomen. The abdominal aorta and IVC appear within normal limits. The bladder appears unremarkable for the degree of distention. The uterus appears within normal limits.. There is no gross evidence of a pelvic mass. There is no free fluid collection. Lung bases are clear. There is no acute osseous abnormality. IMPRESSION: 1. There is no acute process in the abdomen and pelvis. HS:Y e-Prescriptions Omeprazole Magnesium (Omeprazole) 20 Mg Tab 20 MG PO DAILY, #30 TAB Prov: GHADA SPEAR MD 08/16/24 Dicyclomine Hcl (BENTYL CAPSULE) 10 Mg Cp 2 CAP PO Q6HP PRN, #30 CAP 11 Refills Prn abdominal pain Prov: GHADA SPEAR MD 08/16/24 Ondansetron Odt 4MG Tab (ZOFRAN PO) 4 Mg Tb 4 MG PO TID PRN, #30 TAB Prn nausea/vomiting ODT TAB-DISSOLVE IN MOUTH, THEN SWALLOW Prov: GHADA SPEAR MD 08/16/24 Discharged With: Self Critical Care Note Critical Care Time?: No Stability Stability form required: No Heart Score Heart Score: Heart Score Response (Comments) Value History N/A 0 EKG N/A 0 Age N/A 0 Risk Factors N/A 0 Troponin N/A 0 Total 0 I personally scribed for GHADA SPEAR MD ([email or web address]) on 08/16/24 at 13:58. Electronically submitted by Domingo Cantu ([email or web address]). I personally scribed for GHADA SPEAR [email or web address]) on 08/16/24 at 15:52. Electronically submitted by Domingo Cantu ([email or web address]). GHADA SPEAR MD August 16, 2024 13:58
--- NOTE | 2024-08-16 14:52 | DVH ---
CT ABDOMEN AND PELVIS WITHOUT CONTRAST CLINICAL HISTORY: abd pain, n/v/d TECHNIQUE: Multiple contiguous axial images of the abdomen and pelvis without intravenous contrast. T he images were reformatted degenerate coronal and sagittal reconstructions. All CT scans at this medical facility are performed using dose modulation techniques as appropriate t o a performed exam including the following:Automated exposure control was utilized; adjustment of the MA and/or KV according to patient size; and use of iterative reconstruction technique. Radiation Dose Information: CT Dose: CTDI volume is 27.4 mGy. Dose-length product is 1588.94 mGy*cm Comparison: CT CT AB PEL WO CON-NO ORAL OR IV on DOS: 01/25/23, CT ABD PELVIS WO CONTRAST on DOS: 09/11 08/02 FINDINGS: Evaluation of the abdomen and pelvis is limited without intravenous contrast. The liver, gallbladder, pancreas, kidneys, adrenal glands, and spleen appear within normal limits. There is no gross evidence of abdominal lymphadenopathy. There is no free fluid or free air. The stomach grossly appears unremarkable. The small and large bowel loops demonstrate normal caliber and distribution. A normal appearing appendix is seen in the right lower quadrant abdomen. The abdominal aorta and IVC appear within normal limits. The bladder appears unremarkable for the degree of distention. The uterus appears within normal limit s.. There is no gross evidence of a pelvic mass. There is no free fluid collection. Lung bases are clear. There is no acute osseous abnormality. IMPRESSION: 1. There is no acute process in the abdomen and pelvis. HS:Y
[2024-08-16] MEDS ORDERED: OMEP-434 PO (15:28)
[2024-08-16] MEDS ORDERED: DICY10CA PO (15:28)
[2024-08-16] MEDS ORDERED: ZOFR4T PO (15:28)
[2024-08-16 16:24] VITALS: BP 135/70; PULSE 74; RESP 15; TEMP 98.6; O2SAT 99
== END 2024-08-16 16:20 | disposition home or self-care (01) ==
LOC: ER 11:37
DX: R10.30 Lower abdominal pain, unspecified (principal); R11.2 Nausea with vomiting, unspecified; R19.7 Diarrhea, unspecified; J45.909 Unspecified asthma, uncomplicated; F17.210 Nicotine dependence, cigarettes, uncomplicated; F41.9 Anxiety disorder, unspecified; Z79.1 Long term (current) use of non-steroidal anti-inflammatories (NSAID); Z79.899 Other long term (current) drug therapy
CPT/HCPCS: 36415; 74176; 80053; 81001; 83690; 84702; 85025; 96361; 96374; 96375; 99285; J2405; J2470; J7030

== ENCOUNTER 2024-11-02 21:50 | Emergency (ER) | payer MEDICAID ==
[~2024-11-02] VITALS: Ht 152.4 cm; Wt 129.0 kg
[~2024-11-02 21:50] MED LIST changes: +DICY10CA PO; +OMEP-434 PO; +ZOFR4T PO
[2024-11-02 22:03] VITALS: TEMP 98.5
[2024-11-02] MEDS ORDERED: ERY05OO OP (22:44)
--- NOTE | 2024-11-02 22:45 | ED.PDOC ---
Eye-HPI HPI Comments 29-year-old female presents to ER with right eye complaint x1 day. Patient reports that she accidentally splashed "cuticle oil" on her right upper eyelid yesterday evening and has since been experiencing pain/swelling/redness to right upper eyelid with associated intermittent yellow drainage to right eye. She reports 8/10 pain to right upper eyelid and denies use of medications for current symptoms. Patient also reports intermittent blurred vision to right eye, denying any current blurred vision. Patient presents to ER ambulatory on arrival, with steady gait, in no distress. Denies use of contacts, headache or any further symptoms/complaints Chief Complaint: Eye Problem Time Seen by MD: 22:00 Primary Care Provider: ZACK Reviewed Notes: Nurses Notes, Medications, Allergies Allergies: Coded Allergies: NO KNOWN ALLERGIES (Unverified , 02/04/21) Home Meds Active Scripts Omeprazole Magnesium (Omeprazole) 20 Mg Tab, 20 MG PO DAILY, #30 TAB Prov:GHADA SPEAR MD 08/16/24 Dicyclomine Hcl (BENTYL CAPSULE) 10 Mg Cp, 2 CAP PO Q6HP PRN, #30 CAP 11 Refills Prn abdominal pain Prov:GHADA SPEAR MD 08/16/24 Ondansetron Odt 4MG Tab (ZOFRAN PO) 4 Mg Tb, 4 MG PO TID PRN, #30 TAB Prn nausea/vomiting ODT TAB-DISSOLVE IN MOUTH, THEN SWALLOW Prov:GHADA SPEAR MD 08/16/24 Promethazine-Dm (Promethazine Dm 6.25-15 mg/5Ml) 1 Ludy Ludy, 5 ML PO TID PRN, #240 ML Prov:BON PACHECO 03/28/24 Albuterol Sulfate (Albuterol Sulfate Hfa) 108 Mcg/Act Aer, 108 MCG IN TID PRN, #1 AER Prov:BON PACHECO 03/28/24 Prednisone (Prednisone) 20 Mg Tab, 20 MG PO DAILY for 5 Days, #5 MG Prov:BON PACHECO 03/28/24 Albendazole (Albendazole) 200 Mg Tab, 200 MG PO BID, #6 TAB Prov:EVELINA BUCHANAN 03/18/24 Ibuprofen Micronized (Ibuprofen) 800 Mg Tab, 800 MG PO Q8HPRN PRN, #20 TAB Prov:KERVIN GUERRA PAC 01/03/24 Lidocaine HCl (Mouth-Throat) (Lidocaine HCl Viscous) 2 % Ludy, 10 ML MT TID, #100 ML Prov:EVELINA BUCHANAN 10/30/23 Azithromycin (Azithromycin) 500 Mg Tab, 1 TAB PO DAILY, #5 TAB Prov:EVELINA BUCHANAN 10/30/23 Cyclobenzaprine Hcl (Cyclobenzaprine Hcl) 5 Mg Tab, 1 TAB PO QPM for 30 Days, #30 TAB 0 Refills Prov:MANDO MARIN CHOCOLATE REFINING ROLLER 05/26/23 Meloxicam (Meloxicam) 7.5 Mg Tab, 1 TAB PO DAILY for 14 Days, #14 TAB 0 Refills Prov:MANDO MARIN CHOCOLATE REFINING ROLLER 05/26/23 Acetaminophen (Tylenol) 325 Mg Cap, 325 MG PO Q4HPRN PRN, #30 CAP 0 Refills Take 1-2 caps po q4h prn for pain (Do not exceed 3,000mg of acetaminophen in 24 hours) Prov:INNA KAPOOR TOW PICKER 01/28/23 Ibuprofen (Ibuprofen) 800 Mg Tab, 1 TAB PO TID PRN for 30 Days, #90 TAB 1 Refill Prov:JESSICA ELAINE TOW PICKER 01/25/23 Ibuprofen (Ibuprofen) 600 Mg Tab, 1 TAB PO TID for 10 Days, #30 TAB 0 Refills Prov:MANDO MARIN CHOCOLATE REFINING ROLLER 11/26/22 Methocarbamol (Methocarbamol) 500 Mg Tab, 500 MG PO TIDP PRN for 14 Days, #42 TAB 0 Refills Prov:MANDO MARIN CHOCOLATE REFINING ROLLER 11/26/22 Amoxicillin Trihydrate (Amoxicillin) 500 Mg Tab, 1 TAB PO BID for 10 Days, #20 TAB 0 Refills Prov:JASIEL LITTLE 11/21/22 Hydroxyzine Pamoate (Vistaril) 50 Mg Cap, 1 CAP PO QHSP PRN, #24 CAP 0 Refills Prov:EVELINA BUCHANAN 07/12/22 Ondansetron (Zofran) 4 Mg Tab, 1 TAB PO Q8HR PRN, #15 TAB 0 Refills Prov:JASIEL LITTLE 03/19/22 Ondansetron (Zofran) 4 Mg Tab, 1 TAB PO Q6HR, #20 TAB Prov:OSMIN LU MD 01/20/22 Ondansetron (Zofran) 4 Mg Tab, 4 MG PO Q8HP PRN for 12 Days, #30 TAB Prov:GURWINDER PRUITT MD 09/24/21 Acetaminophen (Acetaminophen) 500 Mg Tab, 500 MG PO QIDP, #30 TAB 0 Refills Prov:DENNIS SHAHID 07/28/21 Amoxicillin & Pot Clavulanate (Amoxicillin/Potassium Cla) 875 Mg Tab, 1 TAB PO BID for 7 Days, #14 TAB 0 Refills Prov:DENNIS SHAHID 07/28/21 Mode of Arrival: Ambulatory Past Medical History PAST MEDICAL HISTORY: Asthma Surgical History: Denies all surgeries 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 Family History Family History: Family hx of heart koby Family History (Other): Migraines Social History Smoker: Cigarettes, Less Than 1 Pack/Day Alcohol: Denies ETOH Use Drugs: Marijuana Lives In: Home Constitutional: denies: chills, diaphoresis, fatigue, fever, malaise, sweats, weakness, others EENTM: reports: others (As stated in HPI) Respiratory: denies: cough, hemoptysis, orthopnea, SOB at rest, shortness of breath, SOB with excertion, stridor, wheezing, others Cardiovascular: denies: chest pain, dizzy spells, diaphoresis, Dyspnea on exertion, edema, irregular heart beat, left arm pain, lightheadedness, palpitations, PND, syncope, others Gastrointestinal: denies: abdomen distended, abdominal pain, blood streaked bowels, constipated, diarrhea, dysphagia, difficulty swallowing, hematemesis, melena, nausea, poor appetite, poor fluid intake, rectal bleeding, rectal pain, vomiting, others Genitourinary: denies: abnormal vagina bleeding, burning, dyspareunia, dysuria, flank pain, frequency, hematuria, incontinence, pain, , vagina discharge, urgency, others Neurological: denies: dizziness, fainting, headache, left sided numbness, left sided weakness, numbness, paresthesia, pre-existing deficit, right sided numbnes s, right sided weakness, seizure, speech problems, tingling, tremors, weakness, others Musculoskeletal: denies: back pain, gout, joint pain, joint swelling, muscle pain, muscle stiffness, neck pain, others Integumetry: reports: others (As stated in HPI) Allergic/Immunocompromised: denies: Difficulty Healing, Frequent Infections, Hives, Itching, others Hematologic/Lymphatic: denies: anemia, blood clots, easy bleeding, easy bruising, swollen glands, others Endocrine: denies: excessive hunger, excessive sweating, excessive thirst, excessive urination, flushing, intolerance to cold, intolerance to heat, unexplained weight gain, unexplained weight loss, others Psychiatric: denies: anxiety, bipolar disorder, depression, hopeless, panic dis order, schizophrenia, sleepless, suicidal, others Physical Exam General Appearance: No Apparent Distress HEENT: PERRL/EOMI, Pharynx Normal, TMs Normal, Other (Mild swelling/TTP/erythema noted to right upper eyelid, no subconjunctival injection/drainage/foreign body to right eye noted) Neck: Full Range of Motion, Non-Tender, Normal Respiratory: Chest Non-Tender, Lungs Clear, No Accessory Muscle Use, No Respira tory Distress, Normal Breath Sounds Cardiovascular: No Murmur, No Gallop, Regular Rate/Rhythm Breast Exam: Deferred Gastrointestinal: NOT DONE Genitalia: Deferred Pelvic: Deferred Rectal: Deferred Extremities: Normal capillary refill, Normal range of motion Neurologic: Alert, 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 II-XII nml as Tested, No Motor Deficits, Normal Affect, Normal Mood, No Sensory Deficits Cerebellar Function: Normal Reflexes: Normal Skin: Dry, Warm Lymphatic: No Adenopathy Was a procedure done? Was a procedure done?: No Sedation Sedation?: No EENT DIFF Eye: Corneal Abrasion, Foreign Body-Corneal, Orbital Cellulits, Periorbital Cellulits X-Ray, Labs, Meds, VS Vital Signs Date Time Temp Pulse Resp B/P (MAP) Pulse Ox O2 Delivery O2 Flow Rate FiO2 11/02/24 22:03 98.5 90 16 131/79 (96) 97 98.5 Advised to follow up with Ophthalmology in 3-4 days if symptoms do not improve Advised to follow up with PCP in 1-2 days Patient verbalized understanding and agreeable with current plan of care Advised to return to ER immediately if symptoms worsen Time of 1ST Reevaluation: 22:20 Reevaluation 1ST: N/A Patient Education/Counseling: Diagnosis, Treatment, Prognosis, Need For Follow Up Family Education/Counseling: No Family Present SEPSIS Sepsis Screen Date sepsis recognized/suspect: Nov 02, 2024 Time Sepsis recognized/suspect: 2154 Recent Procedure: No On Antibiotic Therapy: No Respiratory Rate >20: No Heart Rate >90: No Temp<36 C (96.8 F) or >38.3 C: No SBP <90 or MAP <65 mmHG: No New Acute Mental Status Change: No Is the patient on CPAP, BIPAP,: No Vital Signs Date Time Temp Pulse Resp B/P (MAP) Pulse Ox O2 Delivery O2 Flow Rate FiO2 11/02/24 22:03 98.5 90 16 131/79 (96) 97 98.5 Departure 1 Departure Time of Disposition: 22:42 Impression: Primary Impression: Cellulitis of right eyelid Disposition: 01 HOME / SELF CARE / HOMELESS Condition: Stable e-Prescriptions Erythromycin (Erythromycin) 5 Mg/Gm Oin 1 MG OP 6XD for 7 Days, #1 OIN 0 Refills Prov: DENNIS SHAHID 11/02/24 Discharged With: Friend Critical Care Note Critical Care Time?: No Stability Stability form required: No Heart Score Heart Score: Heart Score Response (Comments) Value History N/A 0 EKG N/A 0 Age N/A 0 Risk Factors N/A 0 Troponin N/A 0 Total 0 DENNIS SHAHID Nov 02, 2024 22:45
[2024-11-02 23:54] VITALS: BP 133/70; PULSE 74; RESP 18; O2SAT 100
== END 2024-11-02 23:56 | disposition home or self-care (01) ==
LOC: ER 21:50
DX: H00.031 Abscess of right upper eyelid (principal); J45.909 Unspecified asthma, uncomplicated; F17.210 Nicotine dependence, cigarettes, uncomplicated; F12.90 Cannabis use, unspecified, uncomplicated; Z79.899 Other long term (current) drug therapy; Z79.52 Long term (current) use of systemic steroids; Z79.1 Long term (current) use of non-steroidal anti-inflammatories (NSAID)

== ENCOUNTER 2025-03-01 09:29 | Emergency (ER) | payer MEDICAID ==
[~2025-03-01] VITALS: Ht 152.4 cm; Wt 125.9 kg
[~2025-03-01 09:29] MED LIST changes: +ERY05OO OP
--- NOTE | 2025-03-01 10:44 | ED.PDOC ---
SOB-HPI HPI Comments A 30 YEAR OLD FEMALE PRESENTS TO THE ED WITH COMPLAINT OF COUGH AND THROAT PAIN. PATIENT'S STATES SHE HAS BEEN HAVING COUGH AND NASAL CONGESTION FOR THE PAST 1 WEEK. PATIENT STATES YESTERDAY SHE STARTED THROAT PAIN AND NOTED SOME BLOOD IN HER COUGH AND CAME TODAY FOR EVALUATION. PATIENT STATES SHE SAW PROVIDER AND WAS GIVEN A 5 DAY COURSE OF AUGMENTIN WHICH SHE IS STILL TAKING. PATIENT DENIES FEVER, CHILLS, SHORTNESS OF BREATH, CHEST PAIN, ABDOMINAL PAIN, NAUSEA, VOMITING, HEADACHE, OR OTHER COMPLAINTS. NO OTHER SYMPTOMS OR MODIFYING FACTORS AT THIS TIME. PATIENT IS ALERT, ORIENTED X 4, AND HAS STEADY GAIT. 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 Family History Family History: Family hx of heart koby Family History (Other): Migraines Social History Smoker: Cigarettes, Less Than 1 Pack/Day Alcohol: Denies ETOH Use Drugs: Marijuana Lives In: Home Constitutional: denies: chills, diaphoresis, fatigue, fever, malaise, sweats, weakness, others EENTM: reports: nose congestion, throat pain, throat swelling; denies: blurred vision, double vision, ear bleeding, ear discharge, ear drainage, ear pain, ear ringing, eye pain, eye redness, hearing loss, mouth pain, mouth swelling, nasal discharge, nose bleeding, nose pain, photophobia, tearing, voice changes, others Respiratory: reports: cough; denies: hemoptysis, orthopnea, SOB at rest, shortness of breath, SOB with excertion, stridor, wheezing, others Cardiovascular: denies: chest pain, dizzy spells, diaphoresis, Dyspnea on exertion, edema, irregular heart beat, left arm pain, lightheadedness, palpitations, PND, syncope, others Gastrointestinal: denies: abdomen distended, abdominal pain, blood streaked bowels, constipated, diarrhea, dysphagia, difficulty swallowing, hematemesis, melena, nausea, poor appetite, poor fluid intake, rectal bleeding, rectal pain, vomiting, others Genitourinary: denies: abnormal vagina bleeding, burning, dyspareunia, dysuria, flank pain, frequency, hematuria, incontinence, pain, , vagina discharge, urgency, others Neurological: denies: dizziness, fainting, headache, left sided numbness, left sided weakness, numbness, paresthesia, pre-existing deficit, right sided numbness, right sided weakness, seizure, speech problems, tingling, tremors, weakness, others Musculoskeletal: denies: back pain, gout, joint pain, joint swelling, muscle pain, muscle stiffness, neck pain, others Integumetry: denies: bruises, change in color, change in hair/nails, dryness, laceration, lesions, lumps, rash, wounds, others Allergic/Immunocompromised: denies: Difficulty Healing, Frequent Infections, Hives, Itching, others Hematologic/Lymphatic: denies: anemia, blood clots, easy bleeding, easy bruising, swollen glands, others Endocrine: denies: excessive hunger, excessive sweating, excessive thirst, excessive urination, flushing, intolerance to cold, intolerance to heat, unexplained weight gain, unexplained weight loss, others Psychiatric: reports: anxiety; denies: bipolar disorder, depression, hopeless, panic disorder, schizophrenia, sleepless, suicidal, others All Other Systems: Reviewed and Negative Physical Exam General Appearance: Mild Distress, Obese HEENT: PERRL/EOMI, Pharyngeal Erythema (ERYTHEMA AND SWELLING ON TONSILIS WITH RED BLOOD SPOTS, NO EXUDATES, NO BLEEDING. ), TMs Normal Neck: Full Range of Motion, Non-Tender, Normal, Normal Inspection Respiratory: Chest Non-Tender, Expiration, No Accessory Muscle Use, No Respiratory Distress, Rhonchi Cardiovascular: Bradycardia, No Edema, No JVD, No Murmur, No Gallop, Normal Peripheral Pulses, Regular Rate/Rhythm Breast Exam: Deferred Gastrointestinal: No Organomegaly, Non Tender, No Pulsatile Mass, Normal Bowel Sounds, Soft Genitalia: Deferred Pelvic: Deferred Rectal: Deferred Extremities: No calf tenderness, Normal capillary refill, Normal inspection, Normal range of motion, Non-tender, No pedal edema Musculoskeletal : Apperance: Normal Neurologic: Alert, branch operations coordinator II-XII nml as Tested, No Motor Deficits, Normal Affect, Normal Mood, No Sensory Deficits Cerebellar Function: Normal Reflexes: Normal Skin: Dry, Normal Color, Warm Peripheral Pulses: 2+ carotid (R), 2+ carotid (L) Lymphatic: No Adenopathy Was a procedure done? Was a procedure done?: No Differential Dx Differential Diagnosis: Asthma, Bronchitis, Pneumonia, Respiratory Distress, Sinusitis, Pharyngitis, URI X-Ray, Labs, Meds, VS Vital Signs Date Time Temp Pulse Resp B/P (MAP) Pulse Ox O2 Delivery O2 Flow Rate FiO2 03/01/25 13:01 98.6 77 19 138/76 (96) 99 98.6 03/01/25 10:42 98.6 81 15 116/73 (87) 99 98.6 03/01/25 10:42 81 15 99 Room Air 03/01/25 09:30 97.9 88 15 145/96 100 97.9 Lab Test 03/01/25 10:50 Range/Units Urine Test Negative Negative [place] [address] Ph: [phone] DIAGNOSTIC IMAGING Diagnostic Imaging Report : [id number] Signed CC: PATIENT: ASHWIN ROSALES ACCT: [id number] UNIT: [id number] : 1995 LOC: ER ROOM / BED: / AGE / SEX: 30 / F ADM STATUS: [facility] ER SERVICE [id number] ORDERING PHYSICIAN: EVELINA BUCHANAN PROCEDURE(s): CXR2 - CHEST TWO VIEWS ROUTINE REASON: COUGH ORDER NUMBER(s): [id number], ACCESSION NUMBER(s): [id number] XY CHEST TWO VIEWS ROUTINE CLINICAL HISTORY: COUGH COMPARISON: XY CHEST PORTABLE on DOS: 03/01/25, CHEST TWO VIEWS ROUTINE on DOS: 02/04/21 TECHNIQUE: Frontal and lateral view of the chest was obtained FINDINGS: Lines and Tubes: None Lungs: No focal consolidation. Pleura: No effusion. No pneumothorax. Cardiomediastinal contours: Unremarkable Bones: No acute osseous abnormality. IMPRESSION: No acute cardiopulmonary disease. ATED BY: SESAR VILLAGRAN MD DICTATED DATE/TIME: 03/01/251324 SIGNED BY: SESAR VILLAGRAN MD SIGNED DATE/TIME: 03/01/251324 CC: X-Ray, Labs, Meds, VS Comment COURSE: EXTERNAL MEDICAL RECORDS REVIEWED: [NONE] INDEPENDENT HISTORIANS: [NONE] SOCIAL DETERMINANTS OF HEALTH: [NONE] LABS ORDERED: URINE TEST REVIEWED AND INTERPRETED RESULTS: NONE IMAGING ORDERED: CHEST X-RAY: NO ACUTE FINDING. TREATMENTS ORDERED: NONE PROCEDURES PERFORMED: NONE CRITICAL CARE TIME: NONE I HAVE DISCUSSED THE PATIENT WITH THE ATTENDING PHYSICIAN DR. FREY, AND HE AGREES WITH THE PATIENT'S PLAN OF CARE AND DISPOSITION. BASED ON HISTORY OF PRESENT ILLNESS, AND PHYSICAL EXAM, PATIENT WILL BE DISCHARGED HOME. DISCUSSED PLAN FOR DISCHARGE HOME WITH RX [AZITHROMYCIN AND PHENERGAN DM ]. MEDICATION WARNINGS GIVEN. SHARED DECISION MAKING: DISCUSSED WITH PATIENT THAT THEIR WORKUP WAS NORMAL. PATIENT INSTRUCTED TO FOLLOW UP WITH PRIMARY CARE PROVIDER IN 1-2 DAYS FOR RE- EVALUATION OF SYMPTOMS. PATIENT VERBALIZES UNDERSTANDING TO RETURN TO ED FOR NEW OR WORSENING SYMPTOMS OR IF FOLLOW UP WITH PCP CANNOT BE OBTAINED. PATIENT FEELS COMFORTABLE GOING HOME AT THIS TIME. ALL QUESTIONS ADDRESSED AT TIME OF DISCHARGE. Time of 1ST Reevaluation: 13:16 Reevaluation 1ST: Improved Patient Education/Counseling: Diagnosis, Treatment, Need For Follow Up Family Education/Counseling: Diagnosis, Treatment, No Family Present Medical Screening: No EMC Exist At This Time SEPSIS Sepsis Screen Date sepsis recognized/suspect: Mar 01, 2025 Time Sepsis recognized/suspect: 931 Recent Procedure: No On Antibiotic Therapy: No Respiratory Rate >20: No Heart Rate >90: No Temp<36 C (96.8 F) or >38.3 C: No SBP <90 or MAP <65 mmHG: No New Acute Mental Status Change: No Is the patient on CPAP, BIPAP,: No Physician Orders Chest Portable (03/01/25 10:32) Chest Two Views Routine (03/01/25 12:46) Vital Signs Date Time Temp Pulse Resp B/P (MAP) Pulse Ox O2 Delivery O2 Flow Rate FiO2 03/01/25 13:01 98.6 77 19 138/76 (96) 99 98.6 03/01/25 10:42 98.6 81 15 116/73 (87) 99 98.6 03/01/25 10:42 81 15 99 Room Air 03/01/25 09:30 97.9 88 15 145/96 100 97.9 Departure 1 Departure Time of Disposition: 13:16 Impression: Primary Impression: Acute tonsillitis Qualified Codes: J03.90 - Acute tonsillitis, unspecified Additional Impression: Bronchitis Disposition: HOME / SELF CARE / HOMELESS Condition: Stable Additional Instructions: INSTRUCTIONS: FOLLOW-UP WITH PCP IN 1 TO 2 DAYS. TAKE MEDICATIONS PRESCRIBED. RETURN TO ED FOR ANY NEW OR WORSENING SYMPTOMS. e-Prescriptions Promethazine-Dm (Promethazine Dm 6.25-15 mg/5Ml) 1 Ludy Ludy 10 ML PO TID, #180 ML Prov: EVELINA BUCHANAN 03/01/25 Azithromycin (Azithromycin) 500 Mg Tab 1 TAB PO DAILY, #5 TAB Prov: EVELINA BUCHANAN 03/01/25 Discharged With: Self Critical Care Note Critical Care Time?: No Stability Stability form required: No Heart Score Heart Score: Heart Score Response (Comments) Value History N/A 0 EKG N/A 0 Age N/A 0 Risk Factors N/A 0 Troponin N/A 0 Total 0 I personally scribed for EVELINA BUCHANAN ([email or web address]) on 03/01/25 at 10:44. Electronically submitted by Suleman Hudson ([employer]). I personally scribed for EVELINA BUCHANAN ([email or web address]) on 03/01/25 at 10:52. Electronically submitted by Suleman Hudson ([employer]). I personally scribed for EVELINA BUCHANAN PA ([email or web address]) on 03/01/25 at 11:40. Electronically submitted by Suleman Hudson ([employer]). I personally scribed for JANET BUCHANANA PA ([email or web address]) on 03/01/25 at 11:59. Electronically submitted by Suleman Hudson ([employer]). I personally scribed for JANET BUCHANANA PA ([email or web address]) on 03/01/25 at 12:41. Electronically submitted by Suleman Hudson ([employer]). EVELINA BUCHANAN Mar 01, 2025 10:44
--- NOTE | 2025-03-01 12:34 | DVH ---
EXAM: XY CHEST PORTABLE HISTORY: COUGH COMPARISON: None TECHNIQUE: Portable AP view of the chest was performed. FINDINGS: There are hazy opacities throughout both lungs, which may be artifactual due to large volume overlying adipose tissue. No pneumothorax. The heart is not enlarged. IMPRESSION: Hazy opacities throughout the lungs which may be artifact due to the patient's large body habitus and associated technical factors. Recommend formal PA and lateral views of the chest for better characterization versus noncontrast CT scan of the chest for better characterization.
[2025-03-01 13:01] VITALS: BP 138/76; PULSE 77; RESP 19; TEMP 98.6; O2SAT 99
[2025-03-01] MEDS ORDERED: PROM1SOL4 PO (13:04)
--- NOTE | 2025-03-01 13:28 | DVH ---
XY CHEST TWO VIEWS ROUTINE CLINICAL HISTORY: COUGH COMPARISON: XY CHEST PORTABLE on DOS: 03/01/25, CHEST TWO VIEWS ROUTINE on DOS: 02/04/21 TECHNIQUE: Frontal and lateral view of the chest was obtained FINDINGS: Lines and Tubes: None Lungs: No focal consolidation. Pleura: No effusion. No pneumothorax. Cardiomediastinal contours: Unremarkable Bones: No acute osseous abnormality. IMPRESSION: No acute cardiopulmonary disease.
== END 2025-03-01 13:06 | disposition home or self-care (01) ==
LOC: ER 09:29
DX: J03.90 Acute tonsillitis, unspecified (principal); J40 Bronchitis, not specified as acute or chronic; Z79.899 Other long term (current) drug therapy
CPT/HCPCS: 71045; 71046; 81025